=== PATIENT | male | born 1950 | race Caucasian/White ===

== ENCOUNTER → 2017-02-17 | Outpatient (CLI) | payer BC | END | disposition home or self-care (01) | LOC: GMAB 10:27 | PROVIDERS: ATTEND Family Medicine | DX: Z12.5 Encounter for screening for malignant neoplasm of prostate (principal); I10 Essential (primary) hypertension ==

== ENCOUNTER → 2018-01-19 | Outpatient (CLI) | payer MEDICARE, BC | LOC: GMAE 11:51 | PROVIDERS: ATTEND Family Medicine | DX: I10 Essential (primary) hypertension (principal); Z12.5 Encounter for screening for malignant neoplasm of prostate | CPT/HCPCS: 84443; G0103 ==

== ENCOUNTER → 2019-01-20 | Outpatient (CLI) | payer MEDICARE, BC | LOC: GMAE 10:26 | PROVIDERS: ATTEND Family Medicine | DX: I10 Essential (primary) hypertension (principal); E11.9 Type 2 diabetes mellitus without complications; E78.2 Mixed hyperlipidemia; Z12.5 Encounter for screening for malignant neoplasm of prostate; Z79.899 Other long term (current) drug therapy | CPT/HCPCS: 84443; G0103 ==

== ENCOUNTER 2019-06-09 05:32 | Day surgery (SDC) | payer MEDICARE, BC ==
[2019-06-09] MEDS ORDERED: LIDOCAINE 1% 10 ML VIAL INJ ONE (07:00)
[2019-06-09] MEDS ORDERED: PROPOFOL 200 MG/20 ML VIAL IV ONE (07:00)
[2019-06-09] MEDS ORDERED: SODIUM CHLORIDE 0.9% 50 ML VIAL ONE (07:00)
[2019-06-09] MEDS ORDERED: LACTATED RINGERS 1,000 ML ONE (09:00)
[2019-06-09] MEDS ORDERED: MIDAZOLAM INJ 2 MG/2 ML VIAL ONE (09:46)
[2019-06-09] MEDS ORDERED: KETAMINE HCL 100 MG/ML VIAL ONE (09:46)
--- NOTE | 2019-06-09 10:44 | OP ---
DATE OF PROCEDURE: 06/09/19 PREOPERATIVE DIAGNOSIS: 1. History of colonic polyps. POSTOPERATIVE DIAGNOSIS: 1. Colonic polyp. PROCEDURE: 1. Colonoscopy with single polypectomy at about 15 cm of a 3 to 4 mm polyp. SURGEON: Reji Calvert MD COMPLICATIONS: None. ESTIMATED BLOOD LOSS: Minimal. CONDITION: Stable. PLAN: Discharge. INDICATION: As stated. PROCEDURE: In the lateral position, general anesthesia was induced. Digital rectal exam was normal. The colonoscope was introduced without difficulty, passing all the way to the cecum. Upon withdrawal, there was thick green fluid, but we were able to irrigate most of it and get an adequate exam. Upon withdrawal, there were no polyps in the ascending, transverse and descending colon. We identified one approximately 3 to 4 mm in the upper rectum between 15 and 20 cm. This was excised completely with a snare and retrieved. The remainder of the exam was normal. The patient tolerated the procedure and was taken to Recovery to be discharged. #[id number] cc: Jaye Birmingham MD MTDReyna
[2019-06-09 11:47] VITALS: TEMP 97.7
[2019-06-09 11:48] VITALS: BP 94/66; O2SAT 97
== END 2019-06-09 11:40 | disposition home or self-care (01) ==
LOC: AMB 05:32
PROVIDERS: ATTEND Surgery
DX: Z12.11 Encounter for screening for malignant neoplasm of colon (principal); D12.8 Benign neoplasm of rectum; E11.9 Type 2 diabetes mellitus without complications; I10 Essential (primary) hypertension; E78.00 Pure hypercholesterolemia, unspecified; E66.9 Obesity, unspecified; Z68.32 Body mass index [BMI] 32.0-32.9, adult; Z85.47 Personal history of malignant neoplasm of testis; Z86.010 Personal history of colon polyps; Z88.0 Allergy status to penicillin; Z88.8 Allergy status to other drugs, medicaments and biological substances; Z79.899 Other long term (current) drug therapy
CPT/HCPCS: 00812; 36416; 45385; 82948; 88305; A4216; J2250; J3490; J7120